=== PATIENT | male | born 1980 | race Caucasian/White ===

== ENCOUNTER 2018-11-17 18:58 | Emergency (ER) | payer OTHER ==
[~2018-11-17] VITALS: Ht 180.3 cm; Wt 90.1 kg
[2018-11-17] MEDS ORDERED: IV NORMAL SALINE 1,000ML 1,000 ML IV SCH (19:13)
--- NOTE | 2018-11-17 19:18 | RAD ---
CT CODE STROKE HEAD WO History: Altered mental status, headache, confusion Comparison: None. Technique: Noncontrast CT imaging was performed of the head. Exposure: One or more of the following individualized dose reduction techniques were utilized for this examination: 1. Automated exposure control 2. Adjustment of the mA and/or kV according to patient size 3. Use of iterative reconstruction technique. Findings: There is mild motion. Allowing for motion, no convincing acute extra-axial or parenchymal hemorrhage is identified. There is no significant intra-axial mass effect, midline shift, or extra-axial fluid collection. The rowley-white differentiation of the major vascular territories is preserved. The ventricles, sulci, and cisterns are within normal limits in size and configuration. The mastoid air cells and the visualized paranasal sinuses are aerated. No acute calvarial abnormality is identified. Left ICA bifurcation is slightly more hyperdense than the right. Impression: 1. No convincing acute intracranial hemorrhage is identified. Left ICA bifurcation is slightly more hyperdense than the right although could be accentuated by motion. FOR INTERNAL CODING PURPOSES Critical result: Findings discussed with ANSHU EVERETT at 11/17/2018 7:14 PM. RESULT CODE: (C) Electronically signed by: Isaiah Mays MD (11/17/2018 7:15 PM) [facility]
[2018-11-17] MEDS ORDERED: IOHEXOL 350 MG/ML 100 ML VIAL. IV ONE (19:30)
[2018-11-17 19:48] LABS: BASO # 0.1 x10^3/uL (0.0-0.2); BASO % 1 % (0-3); EOS # 0.1 x10^3/uL (0.0-0.7); EOS % 1 % (0-3); HEMATOCRIT 45.3 % (39.0-53.0); HEMOGLOBIN 15.3 g/dL (13.0-17.5); LYMPH # 2.1 x10^3/uL (1.0-4.8); LYMPH % 13 % (24-48); MEAN CORPUSCULAR HEMOGLOBIN 31 pg (25-35); MEAN CORPUSCULAR HGB CONC 34 g/dL (31-37); MEAN CORPUSCULAR VOLUME 91 fL (79-100); MONO # 0.8 x10^3/uL (0.0-1.1); MONO % 5 % (0-9); NEUT # 12.7 x10^3uL (1.8-7.7); NEUT % 80 % (31-73); PLATELET COUNT 245 x10^3/uL (140-400); RED BLOOD COUNT 4.97 x10^6/uL (4.30-5.70); RED CELL DISTRIBUTION WIDTH 13.3 % (11.5-14.5); WHITE BLOOD COUNT 15.8 x10^3/uL (4.0-11.0)
[2018-11-17 20:00] LABS: CALCIUM 9.1 mg/dL (8.5-10.1); CREATININE 1.3 mg/dL (0.7-1.3); GFR 61.5; MAGNESIUM 1.9 mg/dL (1.8-2.4); POTASSIUM 3.9 mmol/L (3.5-5.1)
[2018-11-17 20:15] LABS: BACTERIA,URINE 0 /HPF (0-FEW); BILIRUBIN,URINE NEG (NEG); CLARITY,URINE CLEAR; COLOR,URINE YELLOW; GLUCOSE,URINE NEG (NEG); NITRITE,URINE NEG (NEG); RBC,URINE 0 /HPF (0-2); UROBILINOGEN,URINE 0.2 mg/dL (0.2 mg/dL); WBC,URINE 0 /HPF (0-4)
--- NOTE | 2018-11-17 20:18 | RAD ---
CTA head and neck History: Altered mental status, confusion Technique: After bolus of intravenous contrast, volumetric CT data acquisition was acquired of the head and neck. Multiplanar reconstruction images to include MIP and 3-D reconstruction images are submitted. Exposure: One or more of the following individualized dose reduction techniques were utilized for this examination: 1. Automated exposure control 2. Adjustment of the mA and/or kV according to patient size 3. Use of iterative reconstruction technique. Comparison: Head CT the same day Any determination of stenosis is based on NASCET criteria. CTA head: Findings: Both vertebral arteries constitute the basilar artery, slightly dominant left vertebral artery. There is visualization segments of bilateral PICAs, AICAs, and superior cerebellar arteries. No significant posterior communicating arteries are visualized, some vessels in this region likely venous. There is patent anterior communicating artery. No focal filling defect is identified of the larger intracranial vessels. There is tortuosity of the distal cervical internal carotid arteries bilaterally. Both internal carotid arteries are seen bilaterally at the skull base. No significant intracranial stenosis or aneurysm is identified. Left transverse and sigmoid sinuses are small in caliber compared with the right likely on a developmental basis. Impression: 1. No significant intracranial stenosis or aneurysm is identified. Neck CTA: Findings: There are normal anatomic origins of the great vessels. Proximal vertebral artery is somewhat tortuous. No significant intracranial stenosis or dissection flap is identified. There is degenerative disc disease and spondylosis C5-6. There is mild inferior right maxillary sinus mucosal thickening. Impression: 1. No significant stenosis or dissection flap is identified of the cervical arterial vasculature. Electronically signed by: Isaiah Mays MD (11/17/2018 8:15 PM) [facility]
[2018-11-17 20:19] LABS: AMPHETAMINE/METHAMPHETAMINE NEG (NEG); BARBITURATES NEG (NEG); BENZODIAZEPINES NEG (NEG); CANNABINOIDS NEG (NEG); COCAINE NEG (NEG); METHADONE NEG (NEG); OPIATES NEG (NEG); PHENCYCLIDINE NEG (NEG)
[2018-11-17] MEDS ORDERED: ASPIRIN 325 MG TABLET PO ONE (20:30)
--- NOTE | 2018-11-17 20:32 | PHYS DOC ---
Adult General Chief Complaint Chief Complaint: NEURO SYMPTOMS/DEFICITS HPI HPI Patient is a 38-year-old male who arrives via EMS with report of acute mental status change. Patient reportedly had been working out at the gym and had been normal but then suddenly was found to be sitting and staring off into space. EMS indicates that they were not able to really get him to answer any questions and appeared confused. Upon arrival, patient is clearly disoriented with exception to time and person but place and situation he is disoriented to 2. He denies any headache, chest pain or shortness of breath. Additional history is quite limited due to patient confusion. Review of Systems Review of Systems Constitutional: Denies fever or chills [] Respiratory: Denies cough or shortness of breath [] Cardiovascular: No additional information not addressed in HPI [] GI: Denies abdominal pain [] Neurologic: Denies headache [] All other systems were reviewed and found to be within normal limits, except as documented in this note. Current Medications Current Medications Current Medications Medications (Trade) Dose Ordered Sig/[facility] Start Time Stop Time Status Last Admin Dose Admin Aspirin (Sarahy Aspirin) 325 mg 1X ONCE 11/17/18 20:30 11/17/18 20:31 DC Iohexol (Omnipaque 350 Mg/ml) 100 ml 1X ONCE 11/17/18 19:30 11/17/18 19:31 DC 11/17/18 19:27 100 ML Sodium Chloride 1,000 ml @ 1,000 mls/hr Q1H 11/17/18 19:13 11/17/18 20:12 DC 11/17/18 20:02 1,000 MLS/HR Allergies Allergies Allergies Coded Allergies Type Severity Reaction Last Updated Verified No Known Drug Allergies 11/17/18 No Physical Exam Physical Exam Constitutional: Well developed, well nourished, no acute distress, non-toxic appearance. [] HENT: Normocephalic, atraumatic, bilateral external ears normal, oropharynx moist, no oral exudates, nose normal. [] Eyes: PERRLA, EOMI, horizontal nystagmus is noted on gaze. [] Neck: Normal range of motion, no tenderness, supple, no stridor. [] Cardiovascular: Regular rate and rhythm[] Lungs & Thorax: Bilateral breath sounds clear to auscultation [] Abdomen: Bowel sounds normal, soft, no tenderness. [] Skin: Warm, dry, no erythema, no rash. [] Extremities: No tenderness, no cyanosis, no clubbing, ROM intact, no edema. [] Neurologic: Disoriented to place and situation, unable to fully assess neurological status as patient has difficulty with understanding commands.. [] Current Patient Data Lab Results Laboratory Tests Test 11/17/18 19:25 11/17/18 19:45 White Blood Count 15.8 x10^3/uL (4.0-11.0) H Red Blood Count 4.97 x10^6/uL (4.30-5.70) Hemoglobin 15.3 g/dL (13.0-17.5) Hematocrit 45.3 % (39.0-53.0) Mean Corpuscular Volume 91 fL (79-100) Mean Corpuscular Hemoglobin 31 pg (25-35) Mean Corpuscular Hemoglobin Concent 34 g/dL (31-37) Red Cell Distribution Width 13.3 % (11.5-14.5) Platelet Count 245 x10^3/uL (140-400) Neutrophils (%) (Auto) 80 % (31-73) H Lymphocytes (%) (Auto) 13 % (24-48) L Monocytes (%) (Auto) 5 % (0-9) Eosinophils (%) (Auto) 1 % (0-3) Basophils (%) (Auto) 1 % (0-3) Neutrophils # (Auto) 12.7 x10^3uL (1.8-7.7) H Lymphocytes # (Auto) 2.1 x10^3/uL (1.0-4.8) Monocytes # (Auto) 0.8 x10^3/uL (0.0-1.1) Eosinophils # (Auto) 0.1 x10^3/uL (0.0-0.7) Basophils # (Auto) 0.1 x10^3/uL (0.0-0.2) Platelet Estimate Pending Sodium Level 141 mmol/L (136-145) Potassium Level 3.9 mmol/L (3.5-5.1) Chloride Level 102 mmol/L (98-107) Carbon Dioxide Level 23 mmol/L (21-32) Anion Gap 16 (6-14) H Blood Urea Nitrogen 15 mg/dL (8-26) Creatinine 1.3 mg/dL (0.7-1.3) Estimated GFR (Cockcroft-Gault) 61.5 Glucose Level 96 mg/dL (70-99) Lactic Acid Level 1.8 mmol/L (0.4-2.0) Calcium Level 9.1 mg/dL (8.5-10.1) Magnesium Level 1.9 mg/dL (1.8-2.4) Troponin I Quantitative < 0.017 ng/mL (0-0.055) Ethyl Alcohol Level < 10 mg/dL (0-10) Urine Collection Type Unknown Urine Color Yellow Urine Clarity Clear Urine pH 5.0 Urine Specific [place] 1.015 Urine Protein Neg (NEG-TRACE) Urine Glucose (UA) Neg mg/dL (NEG) Urine Ketones (Stick) Neg mg/dL (NEG) Urine Blood Neg (NEG) Urine Nitrite Neg (NEG) Urine Bilirubin Neg (NEG) Urine Urobilinogen Dipstick 0.2 mg/dL (0.2 mg/dL) Urine Leukocyte Esterase Neg (NEG) Urine RBC 0 /HPF (0-2) Urine WBC 0 /HPF (0-4) Urine Squamous Epithelial Cells None /LPF Urine Bacteria 0 /HPF (0-FEW) Urine Opiates Screen Neg (NEG) Urine Methadone Screen Neg (NEG) Urine Barbiturates Neg (NEG) Urine Phencyclidine Screen Neg (NEG) Urine Amphetamine/Methamphetamine Neg (NEG) Urine Benzodiazepines Screen Neg (NEG) Urine Cocaine Screen Neg (NEG) Urine Cannabinoids Screen Neg (NEG) Urine Ethyl Alcohol Neg (NEG) EKG EKG [] Radiology/Procedures Radiology/Procedures [] Impressions: PROCEDURE: CT ANGIOGRAPHY HEAD AND NECK CTA head and neck History: Altered mental status, confusion Technique: After bolus of intravenous contrast, volumetric CT data acquisition was acquired of the head and neck. Multiplanar reconstruction images to include MIP and 3-D reconstruction images are submitted. Exposure: One or more of the following individualized dose reduction techniques were utilized for this examination: 1. Automated exposure control 2. Adjustment of the mA and/or kV according to patient size 3. Use of iterative reconstruction technique. Comparison: Head CT the same day Any determination of stenosis is based on NASCET criteria. CTA head: Findings: Both vertebral arteries constitute the basilar artery, slightly dominant left vertebral artery. There is visualization segments of bilateral PICAs, AICAs, and superior cerebellar arteries. No significant posterior communicating arteries are visualized, some vessels in this region likely venous. There is patent anterior communicating artery. No focal filling defect is identified of the larger intracranial vessels. There is tortuosity of the distal cervical internal carotid arteries bilaterally. Both internal carotid arteries are seen bilaterally at the skull base. No significant intracranial stenosis or aneurysm is identified. Left transverse and sigmoid sinuses are small in caliber compared with the right likely on a developmental basis. Impression: 1. No significant intracranial stenosis or aneurysm is identified. Neck CTA: Findings: There are normal anatomic origins of the great vessels. Proximal vertebral artery is somewhat tortuous. No significant intracranial stenosis or dissection flap is identified. There is degenerative disc disease and spondylosis C5-6. There is mild inferior right maxillary sinus mucosal thickening. Impression: 1. No significant stenosis or dissection flap is identified of the cervical arterial vasculature. Electronically signed by: Isaiah Mays MD (11/17/2018 8:15 PM) [facility] Course & Med Decision Making Course & Med Decision Making Pertinent Labs and Imaging studies reviewed. (See chart for details) Upon patient arrival via EMS, patient taken immediately to CT scan for code stroke. CT without contrast is returned unremarkable and a CT angiogram of head and neck have been performed which demonstrated no acute abnormalities. Blood work was obtained as well as urine and findings are essentially unremarkable with the exception of elevated white blood cell count with mild left shift. Dr. Montero was contacted for neurology and he has requested an LP be performed after which patient to be transferred to [facility] under hospitalist services. Just prior to performing LP, patient is reporting frontal headache. Lumbar Puncture by me: Patient consented, time out performed, sterilely prepped/draped, anesthetized locally. Anesthesia: 1% lidocaine locally Location: One interspace below the iliac crest Technique: 20 gauge needle with stylet for entry and removal of needle Results: Slightly bloody CSF fluid which cleared from tubes 1 through 4 No post procedure complications, bleeding, numbness or weakness. Tubes 1 through 4 sent for analysis of CSF. Patient's case has been discussed with Dr. Cutler and he will accept patient in transfer to [facility]. Dragon Disclaimer Dragon Disclaimer This electronic medical record was generated, in whole or in part, using a voice recognition dictation system. Departure Departure: Impression: Primary Impression: Change in mental status Disposition: 02 XFER SHT-TRM HOSP Condition: GUARDED Problem Qualifiers Primary Impression: Change in mental status Altered mental status type: disorientation Qualified Codes: R41.0 - Disorientation, unspecified ANSHU EVERETT Jr. DO Nov 17, 2018 20:32
[2018-11-17 20:44] LABS: % ATYL 2 % (0-0); % EOS 2 % (0-5); % LYMPHS 15 % (24-48); % MONOS 4 % (0-10); % SEGS 77 % (35-66); PLT ESTIMATE ADEQUATE (ADEQUATE)
[2018-11-17 20:46] LABS: ANISOCYTOSIS SLIGHT
[2018-11-17 21:56] LABS: CSF CLARITY CLEAR; CSF COLOR COLORLESS
[2018-11-17 21:58] LABS: CSF WBC COUNT 0
[2018-11-17 22:01] LABS: CSF RBC COUNT 11
[2018-11-17 22:10] LABS: CSF PROTEIN 47.2 mg/dL (15.0-45.0)
[2018-11-17] MEDS ORDERED: MIDAZOLAM HCL PF 5 MG/5 ML VIAL. ONE (22:42)
[2018-11-17] MEDS ORDERED: IV NORMAL SALINE 100ML 100 ML ONE (22:42)
[2018-11-17] MEDS ORDERED: HALOPERIDOL LACT 5 MG/ML VIAL. ONE (22:54)
[2018-11-18] MEDS ORDERED: MIDAZOLAM HCL PF 5 MG/5 ML VIAL. IV ONE
[2018-11-18] MEDS ORDERED: HALOPERIDOL LACT 5 MG/ML VIAL. IM ONE
--- NOTE | 2018-11-18 00:38 | EKG ---
[address] [address] Test Date: 2018-11-17 Test Time: 19:34:42 Pat Name: KARI ESPOSITO Department: Room: Gender: M [employer] Operator: BRENDA : 1980 Requested By: ANSHU EVERETT Order Number: [id number] Reading MD: Jason Coronel MD Measurements Intervals Daniels Rate: 116 P: 36 TN: 162 QRS: 35 QRSD: 98 T: 24 QT: 318 QTc: 448 Interpretive Statements SINUS TACHYCARDIA Electronically Signed On 11-21-2018 16:04:10 CDT by Jason Coronel MD
[2018-11-18 00:44] VITALS: BP 134/85
[2018-11-20 13:22] LABS: WEST NILE IGG CSF Positive (Negative); WEST NILE IGM CSF Negative (Negative)
== END 2018-11-18 01:13 | disposition short-term general hospital (02) ==
LOC: ER 18:58
DX: R41.0 Disorientation, unspecified (principal); R41.82 Altered mental status, unspecified; R51 Headache
CPT/HCPCS: 36415; 51702; 62270; 70450; 70496; 70498; 80048; 80307; 81001; 82945; 83605; 83735; 84157; 84443; 84484; 85007; 85025; 89051; 93005; 96361; 96365; 96372; 96375; 99285; G0480; J0696; J1630; J2250; Q9967; 86788; 86789; J7030